=== PATIENT | male | born 1960 | race African-American/Black ===

== ENCOUNTER 2025-03-04 13:34 | Emergency (ER) | payer MEDICARE ==
[~2025-03-04] VITALS: Ht 182.9 cm; Wt 100.0 kg
[2025-03-04 13:43] VITALS: O2SAT 98
[2025-03-04] MEDS ORDERED: LIDO700A30 TP (17:06)
[2025-03-04] MEDS ORDERED: NAPR-677 MT (17:06)
[2025-03-04 17:29] VITALS: BP 118/79; PULSE 78; RESP 21; TEMP 36.8; O2SAT 96
== END 2025-03-04 17:32 | disposition home or self-care (01) ==
LOC: ER 13:34
DX: S22.42XA Multiple fractures of ribs, left side, initial encounter for closed fracture (principal); S27.1XXA Traumatic hemothorax, initial encounter; S27.321A Contusion of lung, unilateral, initial encounter; R51.9 Headache, unspecified; Z98.890 Other specified postprocedural states; X58.XXXA Exposure to other specified factors, initial encounter; Y93.89 Activity, other specified; Y92.89 Other specified places as the place of occurrence of the external cause; Y99.8 Other external cause status
CPT/HCPCS: 71250; 74176; 99284